=== PATIENT | male | born 1990 | race Caucasian/White ===

== ENCOUNTER 2017-04-09 17:21 | Emergency (ER) | payer MEDICAID, OTHER ==
[~2017-04-09] VITALS: Wt 79.5 kg
[2017-04-09] MEDS ORDERED: KETOROLAC 30 MG INJ IM STA (17:48)
[2017-04-09] MEDS ORDERED: HYDR-906 PO (17:50)
[2017-04-09] MEDS ORDERED: CYCL-319 PO (17:50)
[2017-04-09] MEDS ORDERED: NAPR-260 PO (17:50)
--- NOTE | 2017-04-09 18:02 | ERD ---
ER Documentation Chief Complaint Date/Time DATE: 04/09/17 TIME: 17:54 Chief Complaint r. sided back pain HPI 27-year-old otherwise healthy male presents to the emergency department with complaints of low back pain which has gradually worsened over the past 3 days. Patient currently rates his pain at a 7 out of 10 intermittent throbbing worse with movement. He states the pain is located on the right low back and radiates to the right buttock. He denies any numbness or tingling. Patient denies any weakness or difficulty walking. He denies bowel or bladder incontinence, fever, or chills. Patient states he is attempted to treat his pain with BenGay and ibuprofen with only mild relief. 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 Patient denies a history of back pain. ROS All systems reviewed and are negative except as per history of present illness. Medications Home Meds Active Scripts Cyclobenzaprine Hcl* (Cyclobenzaprine Hcl*) 10 Mg Tablet, 5 MG PO TID, #20 TAB Prov:RJ ARANDA PA-C 04/09/17 Hydrocodone/Acetaminophen (Sullivan 5-325 Tablet) 1 Each Tablet, 1 TAB PO Q6H Y for PAIN, #7 TAB Prov:RJ ARANDA PA-C 04/09/17 Naproxen* (Naprosyn*) 500 Mg Tablet, 500 MG PO BID Y for PAIN AND/OR INFLAMMATION, #30 TAB Prov:RJ ARANDA PA-C 04/09/17 Allergies Allergies: Coded Allergies: No Known Allergy (Unverified , 05/16/14) PMhx/Soc History of Surgery: No Anesthesia Reaction: No Hx Neurological Disorder: No Hx Respiratory Disorders: No Hx Cardiac Disorders: No Hx Psychiatric Problems: No Hx Miscellaneous Medical Probl: Yes (NEPHROTIC SYNDROME, KIDNEY STONES) Hx Alcohol Use: No Hx Substance Use: No Hx Tobacco Use: No Smoking Status: Never smoker Physical Exam Vitals Vital Signs Date Time Temp Pulse Resp B/P Pulse Ox O2 Delivery O2 Flow Rate FiO2 04/09/17 17:25 98.6 62 20 141/77 100 Physical Exam Const: Well-developed, well-nourished, no acute distress Head: Atraumatic Eyes: Normal Conjunctiva ENT: Normal External Ears, Nose and Mouth. Neck: Full range of motion..~ No meningismus. Resp: Clear to auscultation bilaterally Cardio: Regular rate and rhythm, no murmurs Abd: Soft, non tender, non distended. Normal bowel sounds Skin: No petechiae or rashes Back: Patient able to bear full weight and ambulate with normal gait. No evidence of surface trauma or ecchymosis. Tense lumbar paraspinous muscles. No midline tenderness. Marked tenderness along the right-sided piriformis muscle region. No mass. No spinal step-off or deformity. No CVA tenderness or ecchymosis. Patient able to perform full flexion extension, and lateral bending at the hip however reports discomfort. Patellar reflexes brisk and symmetric. Patient with good lower extremity muscle strength at the knee and hip. Patient able to dorsi and plantar flex the ankle. RECTAL: DEFERRED Ext: No cyanosis, or edema Neur: Awake and alert Psych: Normal Mood and Affect Results 24 hrs Current Medications Medications (Trade) Dose Ordered Sig/Tanisha Route PRN Reason Start Time Stop Time Status Last Admin Dose Admin Ketorolac Tromethamine (Toradol) 30 mg ONCE STAT IM 04/09/17 17:48 04/09/17 17:49 DC 04/09/17 17:52 Procedures/MDM This is an otherwise healthy 27-year-old male who presents the emergency department for gradually worsening right-sided back pain which radiates to the buttock. Patient denies any fever, chills, saddle anesthesia, numbness or tingling. He denies weakness and is able to exhibit full range of motion and strength to bilateral lower extremities. Patient able to bear weight and ambulate with a steady gait. 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 History and physical consistent with low back strain with right-sided sciatica. The patient's low back pain is unlikely related to serious etiology. The patient exhibits no clinical signs or symptoms and has no history or risk factors to suggest cauda equina, cord compression, epidural abscess, epidural hematoma, acute aortic aneurysm or dissection. Patient received 1 dose of Toradol in the emergency department and reports improvement of symptoms. Patient to continue anti-inflammatory and muscle relaxants as needed. Strict return precautions discussed. I recommended for the patient to follow- up with an video specialist if symptoms should worsen or he experiences numbness and tingling. Based on patient's history of present illness and physical examination the decision was made to discharge. The patient was re-evaluated after ED treatment and stabilizing measures, and symptoms have improved. There is no evidence of life threatening injuries or illnesses at this time. On re-examination, patient resting in no distress, stable vital signs, reports feeling better and safe for discharge with outpatient follow up with PMD in 1-2 days. Patient given return precautions. Departure Diagnosis: Primary Impression: Back pain Back pain location: low back pain Chronicity: acute Back pain laterality: right Sciatica presence: with sciatica Sciatica laterality: sciatica of right side Qualified Code: M54.41 - Acute right-sided low back pain with right -sided sciatica Additional Impressions: Sciatica Laterality: right Qualified Code: M54.31 - Sciatica of right side Lumbar strain Encounter type: initial encounter Qualified Code: S39.012A - Lumbar strain, initial encounter Condition: Good Patient Instructions: Understanding Sciatica Referrals: [facility] YOU HAVE RECEIVED A MEDICAL SCREENING EXAM AND THE RESULTS INDICATE THAT YOU DO NOT HAVE A CONDITION THAT REQUIRES URGENT TREATMENT IN THE EMERGENCY DEPARTMENT. FURTHER EVALUATION AND TREATMENT OF YOUR CONDITION CAN WAIT UNTIL YOU ARE SEEN IN YOUR DOCTORS OFFICE WITHIN THE NEXT 1-2 DAYS. IT IS YOUR RESPONSIBILITY TO MAKE AN APPOINTMENT FOR FOLOW-UP CARE. IF YOU HAVE A PRIMARY DOCTOR --you should call your primary doctor and schedule an appointment IF YOU DO NOT HAVE A PRIMARY DOCTOR YOU CAN CALL OUR PHYSICIAN REFERRAL HOTLINE AT IF YOU CAN NOT AFFORD TO SEE A PHYSICIAN YOU CAN CHOSE FROM THE FOLLOWING [facility] [address] [facility]. [facility] [address] [facility]. [facility] [address] [facility]. [facility] [address] [facility] [address] [facility]. [facility]. [address] Additional Instructions: Call your primary care doctor TOMORROW for an appointment during the next 1-2 days.See the doctor sooner or return here if your condition worsens before your appointment time. RJ ARANDA PA-C Apr 09, 2017 18:02
== END 2017-04-09 18:00 | disposition home or self-care (01) ==
LOC: FTE 17:21
DX: S39.012A Strain of muscle, fascia and tendon of lower back, initial encounter (principal); X58.XXXA Exposure to other specified factors, initial encounter; Y92.9 Unspecified place or not applicable
CPT/HCPCS: 96372; J1885; Z7502